=== PATIENT | male | born 1950 | race Asian ===

== ENCOUNTER 2016-06-26 10:01 | Day surgery (SDC) | payer OTHER ==
[2016-06-26] MEDS ORDERED: MIDAZOLAM 2 MG/2 ML VIAL IVP ONE (10:08)
[2016-06-26] MEDS ORDERED: NS 1,000 ML IV ONE (10:08)
[2016-06-26] MEDS ORDERED: fentaNYL 100 MCG/2 ML INJ IVP ONE (10:08)
[2016-06-26] MEDS ORDERED: BENZOCAINE UNIT DOSE SPRAY HURRICAINE MM ONE (10:08)
[2016-06-26] MEDS ORDERED: PROPOFOL/EMULSION 500 MG/50 ML BOTTLE IV ONE (11:11)
--- NOTE | 2016-06-26 14:34 | ECHO ---
[id number] + + [address] : : [facility] [address] : : [phone] + Transesophageal Echocardiographic Report + -----+ :Name: Matt DE LA FUENTE Date: 06/26/2016 10:59 AM : : Hospital Admission Number: [id number] Location : [facility]: :: 1950 Gender: Male : :Age: 65 yrs Race: HL, : :Reason For Study: Evaluate MV and MR : :History: Evaluate MR and MV : + -----+ Doppler Measurements \T\ Calculations TR max doc: 256.2 cm/sec TR max P.3 mmHg Left Ventricle The left ventricle is normal in size and function. Ejection Fraction = 55- 60%%. Right Ventricle The right ventricle is normal in size and function. Atria The interatrial septum is intact with no evidence for an atrial septal defect. The left atrium is severely dilated. Spontaneous contrast in left atrial appendage. No left atrial mass or thrombus visualized. No thrombus is detected in the left atrial appendage. The right atrium is moderate to severely dilated. Mitral Valve The posterior mitral valve leaflet appears shortened and thick; the anterior leaflet is thickened with prolapse. Severe, anteriorly directed and eccentric mitral regurgitation with coanda effect. Tricuspid Valve The tricuspid valve is normal in structure and function. There is mild tricuspid regurgitation. Right ventricular systolic pressure is normal. Aortic Valve The aortic valve is trileaflet. There is no aortic stenosis. Mild aortic regurgitation. Pulmonic Valve The pulmonic valve is normal in structure and function. trace to mild pulmonic valvular regurgitation. Vessels The aortic root is normal size. Mild atherosclerotic plaque(s) in the ascending aorta. Conclusion A 2D transesophageal echocardiogram with Doppler and color flow Doppler was performed. The left ventricle is normal in size and function. The left atrium is severely dilated. Spontaneous contrast in left atrial appendage. No left atrial mass or thrombus visualized. No thrombus is detected in the left atrial appendage. The right atrium is moderate to severely dilated. There is mild tricuspid regurgitation. Mild aortic regurgitation. trace to mild pulmonic valvular regurgitation. Ejection Fraction = 55-60%%. The posterior mitral valve leaflet appears shortened and thick; the anterior leaflet is thickened with prolapse. Severe, anteriorly directed and eccentric mitral regurgitation with coanda effect Right ventricular systolic pressure is normal. Final Reading Physician: Joe Cho electronically signed on 06/26/2016 02:33 PM Ordering Physician: Joe Cho Performed By: Joe Cho
== END 2016-06-26 13:18 | disposition home or self-care (01) ==
LOC: FCATH 10:01
PROVIDERS: ATTEND Internal Medicine Cardiovascular Disease
PROC: B246ZZ4 Ultrasonography of Right and Left Heart, Transesophageal (ICD-10-PCS; principal; 2016-06-26)
DX: I05.1 Rheumatic mitral insufficiency (principal); I48.2 Chronic atrial fibrillation; R06.09 Other forms of dyspnea; I51.7 Cardiomegaly; I27.2 Other secondary pulmonary hypertension; I10 Essential (primary) hypertension; I70.0 Atherosclerosis of aorta; I49.5 Sick sinus syndrome; E78.5 Hyperlipidemia, unspecified; Z87.891 Personal history of nicotine dependence; Z85.46 Personal history of malignant neoplasm of prostate; Z79.01 Long term (current) use of anticoagulants
CPT/HCPCS: J2704

== ENCOUNTER 2016-09-04 08:07 | Day surgery (SDC) | payer MEDICAID, OTHER ==
[2016-09-04] MEDS ORDERED: FAMOTIDINE 20 MG TAB PO ONE (08:16)
[2016-09-04] MEDS ORDERED: NS 1,000 ML IV ONE (08:16)
[2016-09-04] MEDS ORDERED: ASPIRIN EC 325 MG TAB PO ONE (08:16)
[2016-09-04] MEDS ORDERED: diphenhydrAMINE 25 MG CAP PO ONE (08:16)
[2016-09-04] MEDS ORDERED: DIAZEPAM 5 MG TAB PO ONE (08:16)
--- NOTE | 2016-09-04 08:33 | CPEKG ---
Heart Rate: 56 RR Interval: 1071 QRSD Interval: 106 QT Interval: 416 QTC Interval: 402 QRS [place]: 18 T Wave [place]: 239 EKG Severity - ABNORMAL ECG - EKG Impression: ATRIAL FIBRILLATION, V-RATE 42-71 EKG Impression: LOW VOLTAGE IN FRONTAL LEADS EKG Impression: PROBABLE LVH WITH SECONDARY REPOL ABNRM Electronically Signed By: Juan Rjoo 04-Sep-2016 16:52:42
[2016-09-04] MEDS ORDERED: LIDOCAINE 1% 300 MG/30 ML SDV ONE (08:47)
[2016-09-04] MEDS ORDERED: fentaNYL 100 MCG/2 ML INJ ONE (08:47)
[2016-09-04] MEDS ORDERED: MIDAZOLAM 2 MG/2 ML VIAL ONE ×2 (08:47→10:44)
[2016-09-04] MEDS ORDERED: IOPAMIDOL (ISOVUE-370) 150 ML BTL IV ONE (08:48)
[2016-09-04] MEDS ORDERED: HEPARIN 10,000 UNIT/10 ML MDV ONE (08:48)
[2016-09-04] MEDS ORDERED: VERAPAMIL 5 MG/2 ML VIAL ONE (08:48)
[2016-09-04 08:55] LABS: % IMMATURE GRANULYOCYTES 0.2 % (0.0-1.1); ABSOLUTE IMMATURE GRANULOCYTES 0.01 10^3/uL (0.00-0.10); ADD DIFF? NO; ADD MORPH? NO; ADD SCAN? NO; ATYPICAL LYMPHOCYTE FLAG 10 (0-99); FRAGMENT RBC FLAG 0 (0-99); HEMATOCRIT 39.7 % (40.0-51.0); HEMOGLOBIN 13.7 g/dL (13.7-17.5); LEFT SHIFT FLG 0 (0-99); LIPEMIA HEMOLYSIS FLAG 90 (0-99); MEAN CELL HEMOGLOBIN 34.1 pg (27.9-34.1); MEAN CELL HEMOGLOBIN CONCENTR. 34.5 g/dL (32.4-36.7); MEAN CELL VOLUME 98.8 fL (81.5-99.8); MEAN PLATELET VOLUME 10.2 fL (8.7-11.7); PLATELET CLUMPS FLAG 0 (0-99); PLATELET COUNT 170 10^3/uL (150-400); RED BLOOD CELL COUNT 4.02 10^6/uL (4.40-6.38)
[2016-09-04 09:05] LABS: INR 1.11 (0.83-1.16); PROTIME(PATIENT) 14.2 SEC (12.0-15.0)
[2016-09-04 09:25] LABS: ANION GAP 13 mEq/L (8-16); CALCIUM 9.2 mg/dL (8.5-10.4); CARBON DIOXIDE 20 mEq/l (22-31); CHLORIDE 106 mEq/L (97-110); CHOLESTEROL 220 mg/dL (140-220); CHOLESTEROL/HDL RATIO 3.33 RATIO (1.00-4.97); CREATININE 1.1 mg/dL (0.7-1.3); GLOMERULAR FILTRATION RATE > 60; GLUCOSE 109 mg/dL (70-100); HIGH DENSITY LIPOPROTEIN 66 mg/dL (40-65); LDL/HDL RATIO 2.08 RATIO (1.00-3.64); LOW DENSITY LIPOPROTEIN 137 mg/dL (80-100); NON-HIGH DENSITY LIPOPROTEIN 154 mg/dL (90-129); POTASSIUM 3.7 mEq/L (3.5-5.2); SODIUM 139 mEq/L (134-144); TRIGLYCERIDE 89 mg/dL (40-150); VERY LOW DENSITY LIPOPROTEINS 17 mg/dL (8-25)
[2016-09-04] MEDS ORDERED: ETOMIDATE 40 MG/20 ML INJ ONE (10:29)
--- NOTE | 2016-09-04 11:50 | CPIP ---
[f rep st] INVASIVE CARDIAC PROCEDURE DATE OF PROCEDURE: 09/04/2016 PROCEDURE PERFORMED: Right and left heart catheterization. INDICATIONS/APPROPRIATE USE CRITERIA: The patient has [place] Heart Association class 3 symptoms o f shortness of breath with minimal exertion, and has known valvular heart disease with severe and pr ogressive mitral regurgitation. He presents for elective right and left heart catheterization prior to a planned elective mitral valve surgery with possible tricuspid valve repair, as well as an intr aoperative Mendieta maze procedure. PROCEDURE IN DETAIL: After informed consent was obtained, n.p.o. status was confirmed, the region o f the right subclavicular fossa and the left radial artery were cleaned, prepped, and draped in ster ile fashion. A 5-Austrian sheath was placed in the antecubital vein on the right side and to the left radial artery on the left side. The patient then underwent the previously-mentioned diagnostic pro cedure with use of 5-Austrian JL4 and R4 curved coronary catheters, as well as a 6-Austrian pigtail cath eter. Standard wire-exchange technique was utilized for all catheter exchanges. The right coronary artery is dominant, giving rise to the posterior descending, as well as a postero lateral ventricular branch. No flow-limiting obstruction, dissection, or thrombus was identified. The left main coronary lumen is approximately 5 mm in size and bifurcates into an LAD and circumflex system. The circumflex vessel is 3 mm in size without flow-limiting obstruction. The LAD arises i n its usual location and gives rise to a proximal diagonal branch. The proximal LAD does have a lum inal irregularity consistent with underlying atherosclerosis. Maximal luminal stenosis is estimated to be 20%. No flow-limiting obstruction is identified and YANG-3 flow was present to the distal ve ssel. The patient underwent left heart catheterization, demonstrating grossly normal left ventricul ar end-diastolic pressure at 11 mmHg. The patient underwent left ventriculogram in the WOODSON projecti on, demonstrating a mildly dilated left ventricular chamber with overall preserved ejection fraction of 65%, with 4+ mitral regurgitation and evidence of a very enlarged left atrium. The visualized p ortion of the thoracic aorta revealed 3 sinuses of Valsalva, most consistent with a trileaflet aorti c valve, and there was no evidence of isaias aneurysm formation of this ascending aorta or isaias diss ection. The patient then underwent a balloon-tipped and flow-directed [place] catheterization with Jackson ca rdiac output measurements on the basis of oxygen consumption. The right atrial pressure was a mean of 12 with A and V waves of 15 and 13. The pulmonary capillary wedge pressure was measured at 16 wi th V waves of 20. RV pressure was severely elevated at 80/16 with an end-diastolic pressure of 18, the PA pressure was 81/20, with a mean pressure of 41. Simultaneous sats were obtained from the aor ta, found to be 97.9, from the central PA at 73.2, as well as from the SVC at 73.6. The Jackson cardia c output was measured at 4.31 L/minute and cardiac index was 2.72 L/minute/sq m. IMPRESSION AND PLAN: The patient has a right-dominant coronary system without evidence of flow-limi ting obstruction of the coronaries. The patient has a dilated left ventricle with relatively well-p reserved ejection fraction as previously mentioned, with a surprisingly normal left ventricular end- diastolic pressure. There is evidence of severe left atrial enlargement and severe mitral regurgita tion. The Jackson cardiac output and index appeared to be adequate. There is severe pulmonary hyperte nsion on the basis of right heart catheterization. The patient tolerated the procedure well and reyes l return to the post cath recovery unit in good and stable condition, where further preoperative yonatan ting will be obtained. /[id number]/MODL
== END 2016-09-04 15:34 | disposition home or self-care (01) ==
LOC: FCATH 08:07
PROVIDERS: ATTEND Internal Medicine Cardiovascular Disease
DX: Z01.810 Encounter for preprocedural cardiovascular examination (principal); I34.0 Nonrheumatic mitral (valve) insufficiency; I27.2 Other secondary pulmonary hypertension; I48.2 Chronic atrial fibrillation; E78.5 Hyperlipidemia, unspecified; I10 Essential (primary) hypertension; Z85.46 Personal history of malignant neoplasm of prostate; Z79.01 Long term (current) use of anticoagulants
CPT/HCPCS: 71010; 93005; 93460; 93880; C1769; J1644; J2250; J3010; Q9967

== ENCOUNTER 2016-09-05 06:45 | Inpatient (IN) | payer OTHER ==
--- NOTE | 2016-09-04 15:34 | PDGENHP ---
History and Physical - Chief Complaint Symptomatic severe mitral regurgitation - History of Present Illness 65 yo male with valvular heart disease and permanent AF, evaluated for declining exercise tolerance and found to have severe MR, mild-mod TR, giant atria, severe PHTN, a mildly dilated LV and preserved BiV systolic fx. Referred for valvular repair and exclusion of PAYTON. Preop imaging negative for LVDD, obstructive CAD, or hemodynamically significant carotid disease. He has not noted any weight gain, edema, PND, orthopnea, chest pain, abdominal pain, lower extremity edema or any perceivable functional limitations with routine ADLs. Does admit to heart racing, breathlessness and some lightheadedness with hiking or an accelerated pace. History Information - Allergies/Home Medication List Allergies/Adverse Reactions: lactose Allergy (Verified 08/27/16 14:23) Abdominal Pain mercury (elemental) Allergy (Verified 08/27/16 14:23) Rash thimerosal Allergy (Verified 08/27/16 14:23) Rash Home Medications: Warfarin Sodium [Coumadin 2.5MG (*)] 2.5 mg PO MOFR 06/26/16 [Last Taken ] Warfarin Sodium [Coumadin 5MG (*)] 5 mg PO SUTUWETHSA 06/26/16 [Last Taken 08/28] Cholecalciferol Vit D3 [Vitamin D3 2000 units tab (OTC)] 2,000 units PO DAILY [Last Taken 09/03/16] Dutasteride [Avodart 0.5 MG (*)] 0.5 mg PO Q2D 08/27/16 [Last Taken 09/03/16] Enoxaparin [Lovenox 60 MG (*)] 60 mg SQ BID 08/27/16 [Last Taken 09/03/16 09:00] Herbals/Supplements -Info Only 1 ea PO DAILY 08/27/16 [Last Taken Unknown] Valsartan/Hydrochlorothiazide [Valsartan-Hctz 80-12.5 mg Tab] 1 each PO HS 08/27 [Last Taken 09/03/16] I have personally reviewed and updated: medical history, social history, surgical history - Past Medical History atrial fibrillation (slow ventricular response, and not on rate control therapy ; sick sinus syndrome suspected), cancer (prostate 2012, followed by urology/ [place] - surveillance PSAs reportedly WNL), hypertension, hyperlipidemia (elev LDL, statin therapy refused) Additional medical history: chronic anticoagulation, on coumadin since 2005. Melena/LGIB on Pradaxa - Surgical History Reports: cancer surgery (prostate surgery w cyberknife and XRT - denies chemo) Additional surgical history: *error on paper chart - no hx bowel rsxn/colostomy* - Social History Smoking Status: Former smoker Review of Systems ROS: 10pt was reviewed & negative except for what was stated in HPI & below Gastrointestinal: Reports: other (2-3 BMs daily since childhood) Genitourinary: Reports: other (slow stream, denies retention, hesitancy, urgency , or incontinence) Physical Exam Constitutional: no apparent distress Eyes: anicteric sclera, other (PER) Ears, Nose, Mouth, Throat: moist mucous membranes, other (no obvious dental disrepair) Cardiovascular: systolic murmur (III/, loudest at apex), irregularly irregular , bradycardia Peripheral Pulses: 2+: dorsalis-pedis (R), dorsalis-pedis (L) Respiratory: clear to auscultation Gastrointestinal: normoactive bowel sounds, soft, non-tender abdomen Skin: warm, normal color, no rashes or abrasions Musculoskeletal: other (symmetric muscular tone) Psychiatric: interacting appropriately, not anxious Lab Data & Imaging Review 09/03/16: WBC 4.2, Hgb 13.7, HCT 39.7, Plt 170, Na 139, K 3.7, BUN 32, Cr 1.1, Glc 109 INR 1.1 Lipids: TC 220, LDL 137, HDL 66, TG 89 Blood type A pos, antibody screen neg Imaging Review: 09/04/16 L/RHC: Rt dom bibi circulation, mild plaquing of LAD - no stenosis > 20% , LVEDP 11, mildly dilated LV, severely dilated LA, 4+ MR, LVEF 65%, PCWP 16, PA mean 41, RVSP 80/16, CI 2.7 Carotid US: No HD sig stenosis, antegrade vertebral flow bilat Visualized and Interpreted Chest x-ray results: Yes Chest X-Ray results: no infiltrate, normal heart size Visualized and Interpreted EKG results: Yes EKG Interpretation: Positive for: other (AF w VVR 40s-70s) Assessment & Plan Assessment: Sx severe MR Secondary TR Secondary PHTN Permanent AF/probable SSS - high risk for postop PPM Dilated cardiomyopathy without ventricular dysfunction Successful coumadin washout on lovenox Plan: Median sternotomy, MVrepair/replace, TVA, AtriClip LLAA, probable Maze. Consents per Dr Mack.
[2016-09-05] MEDS ORDERED: ceFAZolin 2 GM/DEXTROSE 100 ML IV ONE (07:00)
[2016-09-05] MEDS ORDERED: niCARdipine/NACL 200 ML IV ONE (07:00)
[2016-09-05] MEDS ORDERED: MILRINONE/DEXTROSE 100 ML IV ONE (07:00)
[2016-09-05] MEDS ORDERED: DOBUTamine 500 MG in D5W 250 ML IV ONE (07:00)
[2016-09-05] MEDS ORDERED: SODIUM BICARBONATE 20 MEQ, LIDOCAINE 1% 10 ML in NORMOSOL-R 1,000 ML MISC ONE (07:00)
[2016-09-05] MEDS ORDERED: MANNITOL 25% 12.5 GM/50 ML VIAL IV ONE (07:00)
[2016-09-05] MEDS ORDERED: NOREPINEPHRINE BITARTRATE 16 MG in NS 250 ML IV ONE (07:00)
[2016-09-05] MEDS ORDERED: DOBUTamine/DEXTROSE 250 ML IV ONE (07:00)
[2016-09-05] MEDS ORDERED: PHENYLEPHRINE HCL 50 MG in NS 250 ML IV ONE (07:00)
[2016-09-05] MEDS ORDERED: AMINOCAPROIC ACID 5 GM/20 ML VIAL IV ONE (07:00)
[2016-09-05] MEDS ORDERED: INSULIN REGULAR HUMAN 100 UNIT in NS 100 ML IV ONE (07:00)
[2016-09-05] MEDS ORDERED: CITRATE DEXTROSE SOLN 500 ML BAG MISC ONE (07:00)
[2016-09-05] MEDS ORDERED: LIDOCAINE 1% 5 ML SDV ID PRN (07:30)
[2016-09-05] MEDS ORDERED: LR 1,000 ML IV ONE (07:30)
--- NOTE | 2016-09-05 07:30 | PDHPUP ---
History & Physical Update H&P update statement: This history and physical update is based on an assessment of the patient which was completed after admission or registration (within 24 hours), but prior to the surgery/procedure. H&P update: H&P reviewed & patient examined, no change in patient's condition since H&P completed
[2016-09-05] MEDS: MUPIROCIN 2% 22 GM OINT NS SCH ×2 (08:04→21:55)
[2016-09-05] MEDS ORDERED: MIDAZOLAM 2 MG/2 ML VIAL IVP ONE (08:39)
[2016-09-05] MEDS ORDERED: MIDAZOLAM 2 MG/2 ML VIAL ONE ×3 (08:42→08:55)
--- NOTE | 2016-09-05 08:44 | PDANEPAE ---
ANE History of Present Illness severe MR,a-fib, class 3 CHF ANE Past Medical History - Cardiovascular History Hx Hypertension: Yes Hx Arrhythmias: Yes Hx Chest Pain: No Hx Coronary Artery / Peripheral Vascular Disease: No Hx CHF / Valvular Disease: Yes Hx Palpitations: No - Pulmonary History Hx COPD: No Hx Asthma/Reactive Airway Disease: No Hx Recent Upper Respiratory Infection: No Hx Oxygen in Use at Home: No - Neurologic History Hx Cerebrovascular Accident: No Hx Seizures: No Hx Dementia: No - Endocrine History Hx Diabetes: No - Renal History Hx Renal Disorders: No - Liver History Hx Hepatic Disorders: No - Neurological & Psychiatric Hx Hx Neurological and Psychiatric Disorders: No - Cancer History Hx Cancer: Yes - Congenital Disorder History Hx Congenital Disorders: No - GI History Hx Gastrointestinal Disorders: No - Chronic Pain History Chronic Pain: No ANE Review of Systems - Exercise capacity METS (RN): 4 METS (gets tired recently) - Systems Cardiac: Reports: irregular heart rate, lightheadedness, palpitations, other ( severe MR, a-fib) Gastrointestinal: Reports: other (history prostate Ca) ANE Patient History - Allergies Allergies/Adverse Reactions: lactose Allergy (Verified 08/27/16 14:23) Abdominal Pain mercury (elemental) Allergy (Verified 08/27/16 14:23) Rash thimerosal Allergy (Verified 08/27/16 14:23) Rash - Home Medications Home Medications: Warfarin Sodium [Coumadin 2.5MG (*)] 2.5 mg PO MOFR 06/26/16 [Last Taken ] Warfarin Sodium [Coumadin 5MG (*)] 5 mg PO SUTUWETHSA 06/26/16 [Last Taken 08/29] Cholecalciferol Vit D3 [Vitamin D3 2000 units tab (OTC)] 2,000 units PO DAILY [Last Taken 09/03/16] Dutasteride [Avodart 0.5 MG (*)] 0.5 mg PO Q2D 08/27/16 [Last Taken 09/03/16] Enoxaparin [Lovenox 60 MG (*)] 60 mg SQ BID 08/27/16 [Last Taken 09/03/16 09:00] Herbals/Supplements -Info Only 1 ea PO DAILY 08/27/16 [Last Taken 1 Week Ago] Valsartan/Hydrochlorothiazide [Valsartan-Hctz 80-12.5 mg Tab] 1 each PO HS 08/27 [Last Taken 09/04/16] - NPO status NPO Since - Liquids (Date): 09/04/16 NPO Since - Liquids (Time): 19:30 NPO Since - Solids (Date): 09/04/16 NPO Since - Solids (Time): 19:30 - Smoking Hx Smoking Status: Former smoker - Family Anes Hx Family Hx Anesthesia Complications: none ANE Labs/Vital Signs - Labs - CBC WBC: reviewed and okay - Labs - BMP Sodium: reviewed and okay - Vital Signs Blood Pressure: 129/58 Heart Rate: 58 Respiratory Rate: 16 O2 Sat (%): 96 Height: 162.56 cm Weight: 59.874 kg ANE Physical Exam - Airway Neck exam: decreased ROM Mallampati Score: Class 1 Mouth exam: normal dental/mouth exam - Pulmonary Pulmonary: no respiratory distress - Cardiovascular Cardiovascular: irregularly irregular - ASA Status ASA Status: II ANE Anesthesia Plan Anesthesia Plan: general endotracheal anesthesia Lines/Monitors: arterial line (femoral by cts), central line (quad lumen CVP), LUIS (peds )
[2016-09-05] MEDS ORDERED: fentaNYL 100 MCG/2 ML INJ ONE ×4 (08:55→12:35)
[2016-09-05] MEDS ORDERED: PROPOFOL/EMULSION 500 MG/50 ML BOTTLE IV ONE (08:56)
[2016-09-05] MEDS ORDERED: REMIFENTANIL HCL 1 MG VIAL ONE (08:56)
[2016-09-05] MEDS ORDERED: ROCURONIUM 100 MG/10 ML VIAL ONE (08:57)
[2016-09-05] MEDS ORDERED: LIDOCAINE HCL 160 MG/4 ML LTA KIT TP ONE (08:59)
[2016-09-05] MEDS ORDERED: AMINOCAPROIC ACID 5 GM/20 ML VIAL ONE ×2 (09:07→09:11)
[2016-09-05] MEDS ORDERED: POTASSIUM Cl (KCl) 20 MEQ/50 ML BAG IV ONE (09:07)
[2016-09-05] MEDS ORDERED: CALCIUM CHLORIDE 1 GM/10 ML INJ ONE ×2 (09:07→09:11)
[2016-09-05] MEDS ORDERED: MILRINONE/DEXTROSE/100 ML BAG IV ONE (09:07)
[2016-09-05] MEDS ORDERED: PROTAMINE SULFATE 50 MG/5 ML VIAL IVP ONE (09:07)
[2016-09-05] MEDS ORDERED: niCARdipine/NACL/200 ML BAG IV ONE ×2 (09:08→13:53)
[2016-09-05] MEDS ORDERED: NA BICARBONATE 50 MEQ/50 ML VIAL ONE (09:08)
[2016-09-05] MEDS ORDERED: DOPamine/DEXTROSE/250 ML BAG IV ONE (09:08)
[2016-09-05] MEDS ORDERED: AMIODARONE HCL 150 MG/3 ML VIAL ONE ×2 (09:09→09:12)
[2016-09-05] MEDS ORDERED: ADENOSINE 6 MG/2 ML VIAL ONE (09:09)
[2016-09-05] MEDS ORDERED: HEPARIN 10,000 UNIT/10 ML MDV ONE ×2 (09:09→09:13)
[2016-09-05] MEDS ORDERED: ceFAZolin 1 GM VIAL ONE (09:10)
[2016-09-05] MEDS ORDERED: ALBUMIN 5% 250 ML BOTTLE IV ONE (09:11)
[2016-09-05] MEDS ORDERED: CITRATE DEXTROSE SOLN 500 ML BAG ONE (09:12)
[2016-09-05] MEDS ORDERED: methylPREDNISolone SOD SUCC 1 GM/8 ML VIAL ONE (09:12)
[2016-09-05] MEDS ORDERED: LIDOCAINE 2% 100 MG/5 ML SYR ONE (09:12)
[2016-09-05] MEDS ORDERED: MAGNESIUM SULFATE 1 GM/2 ML VIAL ONE (09:12)
[2016-09-05] MEDS ORDERED: DEXAMETHASONE 4 MG/ML VIAL ONE ×2 (09:28)
[2016-09-05] MEDS ORDERED: ESMOLOL HCL 100 MG/10 ML VIAL IV ONE (09:29)
[2016-09-05] MEDS ORDERED: PHENYLEPHRINE HCL 100 MCG/ML SYR ONE (09:38)
[2016-09-05 10:10] LABS: HEMOGLOBIN A1C 6.3 % (4.0-6.0)
[2016-09-05] MEDS ORDERED: MAGNESIUM SULF 2 GM/WATER 50 ML BAG IV ONE (11:37)
[2016-09-05] MEDS ORDERED: SUGAMMADEX SODIUM 200 MG/2 ML VIAL IVP ONE (12:33)
[2016-09-05] MEDS ORDERED: MAGNESIUM HYDROXIDE 30 ML UDCUP PO PRN (12:57)
[2016-09-05] MEDS ORDERED: ALBUMIN 5% 250 ML IV PRN (12:57)
[2016-09-05] MEDS ORDERED: ONDANSETRON DISINTEGRATING 4 MG TAB PO PRN (12:57)
[2016-09-05] MEDS ORDERED: SODIUM CL NASAL 45 ML BTL EACHNARE PRN (12:57)
[2016-09-05] MEDS ORDERED: MEPERIDINE 25 MG/ML SYR IVP PRN (12:57)
[2016-09-05] MEDS ORDERED: fentaNYL 100 MCG/2 ML INJ IVP PRN (12:57)
[2016-09-05] MEDS ORDERED: POLYETHYLENE GLYCOL 3350 17 GM PKT PO PRN (12:57)
[2016-09-05] MEDS ORDERED: ACETAMINOPHEN 650 MG SUPP PR PRN (12:57)
[2016-09-05] MEDS ORDERED: ACETAMINOPHEN 325 MG TAB PO PRN (12:57)
[2016-09-05] MEDS ORDERED: BISACODYL 10 MG SUPP PR PRN (12:57)
[2016-09-05] MEDS ORDERED: D50W 25 GM/50 ML SYR IVP PRN (12:57)
[2016-09-05] MEDS ORDERED: MAGNESIUM SULF 2 GM/WATER 50 ML IV ONE (12:57)
[2016-09-05] MEDS ORDERED: CEPACOL LOZENGE PO PRN (12:57)
[2016-09-05] MEDS ORDERED: METOCLOPRAMIDE 10 MG/2 ML VIAL IVP PRN (12:57)
[2016-09-05] MEDS ORDERED: LACTULOSE 20 GM/30 ML UDCUP PO PRN (12:57)
[2016-09-05] MEDS ORDERED: PANTOPRAZOLE SODIUM 40 MG in NS 100 ML IV ONE (12:57)
[2016-09-05] MEDS ORDERED: NS 1,000 ML IV SCH (13:00)
[2016-09-05] MEDS ORDERED: SODIUM BICARBONATE 50 MEQ/50 ML SYR ONE (14:13)
--- NOTE | 2016-09-05 14:28 | GOP ---
[f rep st] OPERATIVE REPORT DATE OF OPERATION: 09/05/2016 SURGEON: Bharath Mack DO PREOPERATIVE DIAGNOSIS: Class III-IV congestive heart failure with severe mitral insufficiency, severe left atrial enlargement as well as four-chamber enlargement. He also had moderate TR with markedly dilated tricuspid anulus and a longstanding history of permanent atrial fibrillation. POSTOPERATIVE DIAGNOSIS: PROCEDURE PERFORMED: Complex Mitral repair with gortex chordal reconstruction to A3 and #32 Physio annuloplasty ring , TVA #34Edwards ring, Mendieta-Maze 4 with RF and cryo with testing FINDINGS: DESCRIPTION OF PROCEDURE: He was consented for surgery, brought to the operating room, intubated, monitoring lines were placed. He was prepped and draped in sterile classical manner. A sternotomy was performed. The pericardium was opened. The heart was approximately 2 times normal size with all 4 chambers markedly enlarged. He appeared to be volume overloaded in somewhat congestive heart failure mode. He was heparinized, cannulated in ascending aorta, superior vena cava and inferior vena cava. Cardiopulmonary bypass was begun. We then encircled both pulmonary veins and ablated them with multiple lesion sets. We then checked him for exit block and entrance block, and it was confirmed. We then arrested the heart. I then excised the tip of a very large left atrial appendage and placed a radiofrequency bipolar device across that into the right superior pulmonary vein, ablating multiple times. We then placed a 50 mm clip across the base of the vein. I then marked the terminus of the left and right coronary systems for coronary sinus ablation in the future. We then opened the right atrium in a standard fashion. The fat in the groove had been dissected in order to accomplish better ablation. A retractor was placed. I then performed the dome lesion with cryo, adjusted with difficulty placing the clamp with the clip in place. We did a 3-minute cryo lesion from the right to the left superior pulmonary vein, crossing both lines. I then performed the floor lesion utilizing radiofrequency with multiple ablations performed. I then connected the right inferior pulmonary vein to the isthmus of the mitral valve for 3 minutes. I then performed a similar external application along the same line, crossing the coronary sinus where marked in order to complete that lesion set for 2 minutes. I then inspected the mitral valve. He had marked annular dilatation with no evidence of rupture, but it had prolapse of A3, which was the source of his regurgitation. Annuloplasty sutures were placed circumferentially. I then created [place] neochordae from both the posterior and anterior papillary muscles to the midportion of the anterior leaflet, adjusting it appropriately. I then secured a [address], noting the prolapse of A3. These previously placed [place] sutures were tightened down until the regurgitation was eliminated. I then used methylene blue to confirm at least 1/2 inch of coaptation surface both anterior and posteriorly. These sutures were secured with multiple ties. I then closed the left atrium in a standard fashion. I then placed the patient in Trendelenburg. We then opened the right atrium in a vertical fashion, completing the free wall lesion with multiple applications of radiofrequency superior and inferior and inferior vena caval lines with multiple applications. I then used cryo after removing the crossclamp in Trendelenburg across the tricuspid isthmus and held that for 3 minutes. We then placed circumferential sutures around the tricuspid valve, measured him for a 34 ring. This was secured in place. Distention of the ventricle revealed no regurgitation. It should be noted that the tricuspid anulus was 5 cm in diameter upon measurement. I then closed the right atrium while spontaneous cardiac activity was noted to resume. We de-aired the patient through the apex and aortic vent, and when no further air was identified he was easily weaned from bypass on dobutamine. The heparin was reversed with protamine. The cannula was removed and oversewn. 4 pacing wires, 2 mediastinal drains were placed. The thymic fat and pericardium were closed. Chest was closed in a standard fashion. Patient was extubated in the OR and returned to ICU in stable condition. /[id number]/MODL MTDD
--- NOTE | 2016-09-05 14:29 | CPEKG ---
Heart Rate: 94 RR Interval: 638 QRSD Interval: 98 QT Interval: 424 QTC Interval: 531 QRS [place]: -45 T Wave [place]: 100 EKG Severity - ABNORMAL ECG - EKG Impression: ACCELERATED JUNCTIONAL RHYTHM EKG Impression: INFERIOR INFARCT, OLD Electronically Signed By: Juan Rojo 06-Sep-2016 16:53:29
[2016-09-05] MEDS: KETOROLAC 15 MG/1 ML SDV IVP PRN (14:39)
[2016-09-05] MEDS: ceFAZolin 2 GM/DEXTROSE 100 ML IV SCH ×2 (14:40→21:55)
[2016-09-05] MEDS: niCARdipine/NACL 200 ML IV SCH ×2 (14:43→15:00)
[2016-09-05] MEDS ORDERED: NA BICARBONATE 50 MEQ/50 ML VIAL IV ONE ×3 (14:45)
[2016-09-05 15:05] LABS: CALCULATED OXYGEN SATURATION 97 % (92-95); O2 CONCENTRATIION 40 % (0-100)
[2016-09-05] MEDS: POTASSIUM Cl (KCl) 50 ML IV PRN ×2 (16:04→16:05)
[2016-09-05] MEDS ORDERED: niCARdipine/NACL 200 ML IV SCH (19:00)
[2016-09-05] MEDS: ONDANSETRON 4 MG/2 ML VIAL IVP PRN (19:15)
[2016-09-05] MEDS: INSULIN REGULAR HUMAN 100 UNIT in NS 100 ML IV SCH (19:47)
[2016-09-06] MEDS: KETOROLAC 15 MG/1 ML SDV IVP PRN (02:45)
[2016-09-06] MEDS: INSULIN REGULAR HUMAN 100 UNIT in NS 100 ML IV SCH (02:48)
[2016-09-06] MEDS: HYDROCODONE/APAP 5/325 TAB PO PRN ×4 (05:15→20:39)
[2016-09-06] MEDS: ONDANSETRON 4 MG/2 ML VIAL IVP PRN ×2 (05:16→20:37)
[2016-09-06] MEDS: ceFAZolin 2 GM/DEXTROSE 100 ML IV SCH ×3 (05:19→21:41)
[2016-09-06 05:54] LABS: CALCULATED OXYGEN SATURATION 97 % (92-95)
[2016-09-06 05:55] LABS: % IMMATURE GRANULYOCYTES 0.4 % (0.0-1.1); ABSOLUTE IMMATURE GRANULOCYTES 0.05 10^3/uL (0.00-0.10); ADD DIFF? NO; ADD MORPH? NO; ADD SCAN? YES; ATYPICAL LYMPHOCYTE FLAG 0 (0-99); FRAGMENT RBC FLAG 0 (0-99); HEMATOCRIT 29.5 % (40.0-51.0); HEMOGLOBIN 9.9 g/dL (13.7-17.5); LIPEMIA HEMOLYSIS FLAG 80 (0-99); MEAN CELL HEMOGLOBIN 33.4 pg (27.9-34.1); MEAN CELL HEMOGLOBIN CONCENTR. 33.6 g/dL (32.4-36.7); MEAN CELL VOLUME 99.7 fL (81.5-99.8); MEAN PLATELET VOLUME 10.3 fL (8.7-11.7); PLATELET CLUMPS FLAG 30 (0-99); PLATELET COUNT 73 10^3/uL (150-400); RED BLOOD CELL COUNT 2.96 10^6/uL (4.40-6.38); RED CELL DISTRIBUTION WIDTH 15.4 % (11.5-15.2)
[2016-09-06 05:58] LABS: LEFT SHIFT FLG 120 (0-99)
[2016-09-06 06:07] LABS: ANION GAP 7 mEq/L (8-16); CALCIUM 7.8 mg/dL (8.5-10.4); CARBON DIOXIDE 20 mEq/l (22-31); CHLORIDE 110 mEq/L (97-110); CREATININE 0.8 mg/dL (0.7-1.3); GLOMERULAR FILTRATION RATE > 60; GLUCOSE 145 mg/dL (70-100); POTASSIUM 4.3 mEq/L (3.5-5.2); SODIUM 137 mEq/L (134-144)
[2016-09-06 06:08] LABS: INR 1.34 (0.83-1.16); PROTIME(PATIENT) 16.6 SEC (12.0-15.0)
[2016-09-06 06:46] LABS: SCAN NEGATIVE
--- NOTE | 2016-09-06 06:56 | SOAPPROG ---
SOAP Progress Note Assessment/Plan: Assessment: POD#1 complex MV rpr (A3 goretex chordal reconstruction and # 32Physio ring), TVA #34MC3 ring, CoxMaze4 Sx severe MR - Ant leaflet prolapse and annular dilatation amenable to repair. Extubated in the OR. Stable early postop course. Antithrombotic prophylaxis with Coumadin. Pre-existing INR parameters of 2-3 sufficient. Secondary TR - Amenable to ring annuloplasty. Antithrombotic prophylaxis as per MV. Dilated cardiomyopathy - Slightly reduced LV systolic fx intraop. from CPB on dobutamine. Fixed dose overnoc for optimized hemodynamics. Wean in progress. Staggered intro of heart failure regimen as appropriate. Longstanding slow AF w ASTRID - JR early postop Maze and AV paced. Underlying rhythm overnoc AJR and left on VVI backup. EP cards to follow for potential PPM needs. Chronic anticoag w coumadin resumed (at lower dose in event of PPM). Lovenox bridge pending INR < 2. Acute expected blood loss anemia - Stable. No blood products transfused. No evidence bleeding. VTE prophylaxis with lovenox. Stress hyperglycemia - Preop A1c of 6.3%. Postop hyperglycemia managed with low dose insulin gtt. Wean to SSI as per protocol. Plan: Routine POD#1 orders re drains, orals and mobility. Reduce dobutamine to 2.5 mcg/kg/min. Discontinue in 1 hr if SBP > 100. AV pace at 90 to facilitate dobut wean. Keep [place] until off dobut. Lasix prn SBP > 140, CVP > 12. Resume therapeutic Lovenox. Resume lower dose Coumadin. Possible tx to PCU later today. 09/06/16 06:50 Subjective: Doing ok. Satisfactory analgesia. Tolerating OOB without dizziness. A little nauseous w orals. Objective: Vital Signs Temp Pulse Resp BP Pulse Ox 36.4 C 82 15 130/42 H 95 09/06/16 06:00 09/06/16 06:00 09/06/16 06:00 09/06/16 06:00 09/06/16 06:00 Laboratory Results 09/06/16 05:45 09/06/16 05:45 09/05/16 09/06/16 09/07/16 05:59 05:59 05:59 Intake Total 1971 Output Total 2445 Balance -474 PT 16.6 SEC (12.0-15.0) H 09/06/16 05:45 INR 1.34 (0.83-1.16) H 09/06/16 05:45 AJR 70s-80s since MN without drop in BP vs AVpaced. Dobutamine reduced from 10 to 5 yest pm. MAPs generally > 70. Excellent UOP. No significant CTOP. CXR -> No PTX, no pulm vasc congestion, no pleural effusions, inc bowel gas Labs as expected. Physical Exam - Physical Exam General Appearance: alert, no apparent distress Respiratory: normal breath sounds (grossly), other (blakes x 2 y-d to pleurovac , serosang drainage, no air leak) Cardiac/Chest: regular rate, rhythm, other (Sternum grossly stable. Sternotomy CDI. A&V wires intact.) Abdomen: normal bowel sounds, non-tender, soft Skin: warm/dry Extremities: swelling (trace-1+ gen) ICD10 Worksheet Patient Problems: Problems Problem Status Onset Acute blood loss anemia Acute Status post ablation of atrial fibrillation Acute ~09/05/16 Status post mitral valve repair Acute ~09/05/16 Status post tricuspid valve repair Acute ~09/05/16 Atrial fibrillation Chronic Chronic anticoagulation Chronic Moderate to severe pulmonary hypertension Chronic Secondary tricuspid regurgitation Chronic Severe mitral regurgitation Chronic
[2016-09-06] MEDS ORDERED: DOBUTamine/DEXTROSE 250 ML IV SCH (07:00)
--- NOTE | 2016-09-06 07:37 | CPEKG ---
Heart Rate: 69 RR Interval: 870 QRSD Interval: 84 QT Interval: 408 QTC Interval: 437 QRS [place]: -7 T Wave [place]: 98 EKG Severity - ABNORMAL ECG - EKG Impression: ATRIAL FIBRILLATION EKG Impression: ANTEROLATERAL INFARCT, OLD Electronically Signed By: Juan Rojo 06-Sep-2016 16:53:08
[2016-09-06] MEDS ORDERED: POTASSIUM Cl (KCl) 100 ML IV ONE (08:00)
[2016-09-06] MEDS ORDERED: FUROSEMIDE 20 MG/2 ML VIAL IV ONE (08:00)
[2016-09-06] MEDS ORDERED: POTASSIUM Cl (KCl) 50 ML IV ONE (08:30)
[2016-09-06] MEDS: ASPIRIN 81 MG CHEWABLE TAB PO SCH (09:27)
[2016-09-06] MEDS: ENOXAPARIN 60 MG/0.6 ML SYR SC SCH ×2 (09:27→20:39)
[2016-09-06] MEDS: PANTOPRAZOLE SODIUM 40 MG TAB PO SCH (09:28)
[2016-09-06] MEDS: MUPIROCIN 2% 22 GM OINT NS SCH ×2 (09:28→20:48)
[2016-09-06] MEDS ORDERED: traMADol 50 MG TAB PO PRN (11:22)
[2016-09-06] MEDS: WARFARIN SODIUM 2.5 MG TAB PO SCH (15:56)
[2016-09-06 19:03] LABS: POTASSIUM 4.7 mEq/L (3.5-5.2)
[2016-09-06] MEDS: VALSARTAN 40 MG TAB PO SCH (20:39)
[2016-09-06] MEDS: SENNOSIDES/DOCUSATE SODIUM TAB PO SCH (20:39)
[2016-09-07 06:29] LABS: % IMMATURE GRANULYOCYTES 0.5 % (0.0-1.1); ABSOLUTE IMMATURE GRANULOCYTES 0.08 10^3/uL (0.00-0.10); ADD DIFF? NO; ADD MORPH? NO; ADD SCAN? NO; ATYPICAL LYMPHOCYTE FLAG 0 (0-99); FRAGMENT RBC FLAG 0 (0-99); HEMATOCRIT 26.4 % (40.0-51.0); HEMOGLOBIN 8.9 g/dL (13.7-17.5); LEFT SHIFT FLG 50 (0-99); LIPEMIA HEMOLYSIS FLAG 80 (0-99); MEAN CELL HEMOGLOBIN 34.1 pg (27.9-34.1); MEAN CELL HEMOGLOBIN CONCENTR. 33.7 g/dL (32.4-36.7); MEAN CELL VOLUME 101.1 fL (81.5-99.8); MEAN PLATELET VOLUME 10.8 fL (8.7-11.7); PLATELET CLUMPS FLAG 10 (0-99); PLATELET COUNT 75 10^3/uL (150-400); RED BLOOD CELL COUNT 2.61 10^6/uL (4.40-6.38); RED CELL DISTRIBUTION WIDTH 15.9 % (11.5-15.2)
[2016-09-07 06:51] LABS: INR 1.37 (0.83-1.16); PROTIME(PATIENT) 16.9 SEC (12.0-15.0)
[2016-09-07 07:10] LABS: ANION GAP 6 mEq/L (8-16); CARBON DIOXIDE 25 mEq/l (22-31); CHLORIDE 102 mEq/L (97-110); GLOMERULAR FILTRATION RATE > 60; GLUCOSE 136 mg/dL (70-100); POTASSIUM 5.5 mEq/L (3.5-5.2); SODIUM 133 mEq/L (134-144)
[2016-09-07] MEDS ORDERED: FUROSEMIDE 20 MG/2 ML VIAL IVP ONE (07:30)
--- NOTE | 2016-09-07 07:55 | SOAPPROG ---
SOAP Progress Note Assessment/Plan: Assessment: POD#2 complex MV rpr (A3 goretex chordal reconstruction and # 32Physio ring), TVA #34MC3 ring, CoxMaze4 Sx severe MR - Ant leaflet prolapse and annular dilatation amenable to repair. Extubated in the OR. Stable early postop course. Antithrombotic prophylaxis with Coumadin. Pre-existing INR parameters of 2-3 sufficient. Secondary TR - Amenable to ring annuloplasty. Antithrombotic prophylaxis as per MV. Dilated cardiomyopathy - Slightly reduced LV systolic fx intraop. from CPB on dobutamine. Fixed dose x 24h for optimized hemodynamics. Staggered intro of heart failure regimen in progress. Longstanding slow AF w ASTRID - JR early postop Maze and AV paced. Underlying rhythm per EP cards fine AF w SVR and left on VVI backup. Remains pacer dependent. PPM likely. Slow re-anticoag w coumadin pending timing of PPM. Lovenox bridge pending INR < 2. Acute expected blood loss anemia - Stable. No blood products transfused. No evidence bleeding. VTE prophylaxis with lovenox. Stress hyperglycemia - Preop A1c of 6.3%. Postop hyperglycemia managed with low dose insulin gtt. No subsequent correctional needs and monitoring suspended. Plan: Mediastinal drain removed. Cont VVI backup. Inc rate to 70. Resume daily diuresis. Cont Valsartan 40 mg BID. Cont therapeutic Lovenox. Cont Coumadin. 1 mg today. Baseline postop echo Mon. Dispo - Home Mon pm or if rhythm stable. 09/07/16 07:48 Subjective: Doing ok. Short freq walks well tolerated. Hasn't tried to extend jaunts just yet. Objective: Vital Signs Temp Pulse Resp BP Pulse Ox 36.7 C 60 18 134/48 H 96 09/07/16 07:44 09/07/16 07:44 09/07/16 07:44 09/07/16 07:44 09/07/16 07:44 Laboratory Results 09/07/16 06:20 09/07/16 06:20 09/06/16 09/07/16 09/08/16 05:59 05:59 05:59 Intake Total 1971 1450 Output Total 2448 1680 Balance -474 -230 PT 16.9 SEC (12.0-15.0) H 09/07/16 06:20 INR 1.37 (0.83-1.16) H 09/07/16 06:20 100% pacer dependent on VVI backup 60. Underlying resting rates 30s -40s. Endorses a little wooziness with paced rate 50. HR does inc with activity. Upward BP creep and ARB restarted. Adequate fluid balance. Labs ok. K oversuppl. Physical Exam - Physical Exam General Appearance: alert, no apparent distress Respiratory: lungs clear, other (Blakes x 2 to bulb suction, serosang drainage. Mediastinal drain removed without incident.) Cardiac/Chest: regular rate, rhythm (paced), other (A&V wires intact) Abdomen: non-tender, soft Skin: warm/dry Extremities: swelling (trace) ICD10 Worksheet Patient Problems: Problems Problem Status Onset Acute blood loss anemia Acute Status post ablation of atrial fibrillation Acute ~09/05/16 Status post mitral valve repair Acute ~09/05/16 Status post tricuspid valve repair Acute ~09/05/16 Atrial fibrillation Chronic Chronic anticoagulation Chronic Moderate to severe pulmonary hypertension Chronic Secondary tricuspid regurgitation Chronic Severe mitral regurgitation Chronic
[2016-09-07] MEDS: ENOXAPARIN 60 MG/0.6 ML SYR SC SCH ×2 (08:29→21:37)
[2016-09-07] MEDS: HYDROCODONE/APAP 5/325 TAB PO PRN ×2 (08:30→21:37)
[2016-09-07] MEDS: DUTASTERIDE 0.5 MG CAP PO SCH (08:30)
[2016-09-07] MEDS: PANTOPRAZOLE SODIUM 40 MG TAB PO SCH (08:30)
[2016-09-07] MEDS: VALSARTAN 40 MG TAB PO SCH ×2 (08:31→21:36)
[2016-09-07] MEDS: SENNOSIDES/DOCUSATE SODIUM TAB PO SCH ×2 (08:31→21:36)
[2016-09-07] MEDS: ASPIRIN 81 MG CHEWABLE TAB PO SCH (08:31)
[2016-09-07] MEDS: CHOLECALCIFEROL VIT D3 2,000 UNITS TAB/CAP PO SCH (08:31)
[2016-09-07 13:12] LABS: POTASSIUM 4.4 mEq/L (3.5-5.2)
[2016-09-07] MEDS ORDERED: WARFARIN SODIUM 2.5 MG TAB PO ONE (16:00)
[2016-09-07] MEDS ORDERED: WARFARIN SODIUM 1 MG TAB PO ONE (16:00)
[2016-09-07] MEDS: WARFARIN SODIUM 5 MG TAB PO SCH (18:31)
[2016-09-08 06:01] LABS: HEMATOCRIT 22.8 % (40.0-51.0); HEMOGLOBIN 7.6 g/dL (13.7-17.5)
[2016-09-08 06:13] LABS: INR 1.32 (0.83-1.16); PROTIME(PATIENT) 16.4 SEC (12.0-15.0)
[2016-09-08 06:25] LABS: POTASSIUM 4.7 mEq/L (3.5-5.2)
--- NOTE | 2016-09-08 08:29 | SOAPPROG ---
SOAP Progress Note Assessment/Plan: Assessment: POD#3 complex MV rpr (A3 goretex chordal reconstruction and # 32Physio ring), TVA #34MC3 ring, CoxMaze4 Sx severe MR - Ant leaflet prolapse and annular dilatation amenable to repair. Extubated in the OR. Stable early postop course. Antithrombotic prophylaxis with Coumadin. Pre-existing INR parameters of 2-3 sufficient. Secondary TR - Amenable to ring annuloplasty. Antithrombotic prophylaxis as per MV. Dilated cardiomyopathy - Slightly reduced LV systolic fx intraop. from CPB on dobutamine. Fixed dose x 24h for optimized hemodynamics. Staggered intro of heart failure regimen in progress. Longstanding slow AF w ASTRID - JR early postop Maze and AV paced. Underlying rhythm per EP cards fine AF w SVR and left on VVI backup. Remains pacer dependent. PPM planned for tomorrow. Re-anticoagulation in progress. Lovenox bridge pending INR < 2. Acute expected blood loss anemia - Exacerbated by hx G6PD deficiency. Falling H/ H yet to equilibrate. Well tolerated. No evidence active surgical bleeding. Will ck for hemolysis and transfuse prn. VTE prophylaxis with lovenox. Fe suppl x 2 weeks. Stress hyperglycemia - Preop A1c of 6.3%. Postop hyperglycemia managed with low dose insulin gtt. No subsequent correctional needs and monitoring suspended. Plan: Repeat H/H. Hold Lovenox for now. Inc Protonix to BID. Remove pleural drain and Awires. Cont VVI backup at 70. Cont daily diuresis. Cont Valsartan 40 mg BID. Cont Coumadin as per home regimen. Start Feosol hs. Baseline postop echo Mon. PPM Mon per cards. 09/08/16 08:27 Subjective: Feels well. 1 lap around the hdez well tolerated this am. No acute concerns. Not surprised by "anemia" as has G6pd deficiency (manifest in the past with intermittent hematuria). +BM, brown in color. Objective: Vital Signs Temp Pulse Resp BP Pulse Ox 37.4 C 70 14 109/51 L 97 09/08/16 07:32 09/08/16 07:32 09/08/16 07:32 09/08/16 07:32 09/08/16 07:32 Laboratory Results 09/08/16 05:50 09/08/16 05:50 09/07/16 09/08/16 09/09/16 05:59 05:59 05:59 Intake Total 1450 800 Output Total 1680 375 40 Balance -230 425 -40 PT 16.4 SEC (12.0-15.0) H 09/08/16 05:50 INR 1.32 (0.83-1.16) H 09/08/16 05:50 Remains pacer dependent. MAPs > 70. I/Os inaccurate. Adequate fluid balance by wts. 0.7kg wt loss overnoc. Now + 1.4kg. Downward drifting H/H. Minimal drainage from remaining chest tube. INR yet to budge. Physical Exam - Physical Exam General Appearance: alert, no apparent distress Respiratory: crackles (bases, L>R), other (Horacio to bulb suction, thin serosang drainage. ~20 cc since 0600.) Cardiac/Chest: regular rate, rhythm (paced), other (Sternum grossly stable. Sternotomy CDI. Diffuse localized ecchymoses. A&V wires intact.) Abdomen: non-tender, soft Skin: warm/dry Extremities: swelling (trace generalized) ICD10 Worksheet Patient Problems: Problems Problem Status Onset Acute blood loss anemia Acute Status post ablation of atrial fibrillation Acute ~09/05/16 Status post mitral valve repair Acute ~09/05/16 Status post tricuspid valve repair Acute ~09/05/16 Atrial fibrillation Chronic Chronic anticoagulation Chronic G6PD deficiency Chronic Moderate to severe pulmonary hypertension Chronic Secondary tricuspid regurgitation Chronic Severe mitral regurgitation Chronic
[2016-09-08 08:53] LABS: HEMATOCRIT 22.5 % (40.0-51.0); HEMOGLOBIN 7.6 g/dL (13.7-17.5); MEAN CELL HEMOGLOBIN 34.1 pg (27.9-34.1); MEAN CELL HEMOGLOBIN CONCENTR. 33.8 g/dL (32.4-36.7); MEAN CELL VOLUME 100.9 fL (81.5-99.8); RED BLOOD CELL COUNT 2.23 10^6/uL (4.40-6.38); RED CELL DISTRIBUTION WIDTH 15.7 % (11.5-15.2)
[2016-09-08] MEDS: ASPIRIN 81 MG CHEWABLE TAB PO SCH (09:48)
[2016-09-08] MEDS: PANTOPRAZOLE SODIUM 40 MG TAB PO SCH ×2 (09:48→20:58)
[2016-09-08] MEDS: VALSARTAN 40 MG TAB PO SCH ×2 (09:49→20:58)
[2016-09-08] MEDS: CHOLECALCIFEROL VIT D3 2,000 UNITS TAB/CAP PO SCH (09:50)
[2016-09-08] MEDS: SENNOSIDES/DOCUSATE SODIUM TAB PO SCH (09:50)
[2016-09-08] MEDS ORDERED: FUROSEMIDE 20 MG/2 ML VIAL IVP ONE ×2 (12:00→14:15)
[2016-09-08] MEDS: WARFARIN SODIUM 5 MG TAB PO SCH (17:19)
[2016-09-08] MEDS: FERROUS SULFATE 325 MG TAB PO SCH (20:59)
[2016-09-08] MEDS ORDERED: SENNOSIDES/DOCUSATE SODIUM TAB PO PRN (21:00)
[2016-09-09] MEDS: HYDROCODONE/APAP 5/325 TAB PO PRN ×2 (00:02→20:01)
[2016-09-09] MEDS ORDERED: DIAZEPAM 5 MG TAB PO ONE (06:00)
[2016-09-09] MEDS ORDERED: NS 1,000 ML IV ONE (06:00)
[2016-09-09] MEDS ORDERED: ceFAZolin 2 GM/DEXTROSE 100 ML IV ONE ×2 (06:00→12:00)
[2016-09-09] MEDS ORDERED: diphenhydrAMINE 25 MG CAP PO ONE (06:00)
[2016-09-09] MEDS ORDERED: BACITRACIN IRRIGATION/NS 50,000 UNITS/1,000 ML BTL IRR ONE ×2 (06:00→12:00)
[2016-09-09 06:15] LABS: HEMATOCRIT 23.9 % (40.0-51.0); HEMOGLOBIN 8.1 g/dL (13.7-17.5); MEAN CELL HEMOGLOBIN 33.9 pg (27.9-34.1); MEAN CELL HEMOGLOBIN CONCENTR. 33.9 g/dL (32.4-36.7); RED BLOOD CELL COUNT 2.39 10^6/uL (4.40-6.38)
[2016-09-09 06:23] LABS: INR 1.4 (0.83-1.16); PROTIME(PATIENT) 17.1 SEC (12.0-15.0)
[2016-09-09 06:24] LABS: APTT 37.7 SEC (23.0-38.0)
[2016-09-09 06:48] LABS: ALANINE AMINOTRANSFERASE 33 IU/L (21-72); ALBUMIN 2.9 g/dL (3.5-5.0); ALKALINE PHOSPHATASE 32 IU/L (38-126); ANION GAP 6 mEq/L (8-16); ASPARTATE AMINOTRANSFERASE 45 IU/L (17-59); BILIRUBIN,TOTAL 0.9 mg/dL (0.1-1.4); CALCIUM 7.8 mg/dL (8.5-10.4); CARBON DIOXIDE 26 mEq/l (22-31); CHLORIDE 100 mEq/L (97-110); CREATININE 0.9 mg/dL (0.7-1.3); GLOMERULAR FILTRATION RATE > 60; GLUCOSE 113 mg/dL (70-100); POTASSIUM 4.3 mEq/L (3.5-5.2); SODIUM 132 mEq/L (134-144); TOTAL PROTEIN 5.2 g/dL (6.3-8.2)
--- NOTE | 2016-09-09 07:25 | SOAPPROG ---
SOAP Progress Note Assessment/Plan: POD#4 complex MV rpr (A3 goretex chordal reconstruction and #32Physio ring), TVA #34MC3 ring, CoxMaze4 Sx severe MR - Ant leaflet prolapse and annular dilatation amenable to repair. Extubated in the OR. Stable early postop course. Antithrombotic prophylaxis with Coumadin. Pre-existing INR parameters of 2-3 sufficient. Secondary TR - Amenable to ring annuloplasty. Antithrombotic prophylaxis as per MV. Dilated cardiomyopathy - Slightly reduced LV systolic fx intraop. from CPB on dobutamine. Fixed dose x 24h for optimized hemodynamics. Staggered intro of heart failure regimen in progress. Longstanding slow AF w ASTRID - JR early postop Maze and AV paced. Underlying rhythm per EP cards fine AF w SVR and left on VVI backup. Remains pacer dependent. PPM today. Re-anticoagulation in progress. Lovenox bridge pending INR < 2. Acute expected blood loss anemia - possible exacerbation by hx G6PD deficiency. s/p 1U PRBC 09/08 with slight increase in HCT (23.9 from 22.5). Will f/u CXR post PPM implantation to r/o new effusions. Fe suppl x 2 weeks. Stress hyperglycemia - Preop A1c of 6.3%. Postop hyperglycemia managed with low dose insulin gtt. No subsequent correctional needs and monitoring suspended. Subjective: Denies CP/SOB. 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) Abdomen: non-tender, soft, No distended Skin: normal color, warm/dry Extremities: pedal edema Neuro/Psych: no motor/sensory deficits, alert, normal mood/affect, oriented x 3 ICD10 Worksheet Patient Problems: Problems Problem Status Onset Acute blood loss anemia Acute Status post ablation of atrial fibrillation Acute ~09/05/16 Status post mitral valve repair Acute ~09/05/16 Status post tricuspid valve repair Acute ~09/05/16 Atrial fibrillation Chronic Chronic anticoagulation Chronic G6PD deficiency Chronic Moderate to severe pulmonary hypertension Chronic Secondary tricuspid regurgitation Chronic Severe mitral regurgitation Chronic
--- NOTE | 2016-09-09 10:50 | ECHO ---
[id number] + + [address] : : [place] [address] : : [phone] + + Adult Echocardiographic Report + -----+ :Name: Matt DE LA FUENTE Date: 09/09/2016 08:06 AM BP: 123/57 mmHg : : Hospital Admission Number: [id number] Location : 212: :: 1950 Gender: Male Height: 64 in : :Age: 65 yrs Race: HL, Weight: 136 lb : :Reason For Study: routine baseline postop : : BSA: 1.7 meters2 : :History: s/p MVR #32 ring and TVA #34 ring. : + -----+ MMode/2D Measurements \T\ Calculations IVSd: 1.2 cm RVDd: 3.3 cm FS: 27.8 % Ao root diam: LVPWd: 0.87 cm LVIDd: 5.0 cm EDV(Teich): 3.3 cm LVIDs: 3.6 cm 117.8 ml ESV(Teich): 54.5 ml EF(Teich): 53.7 % LVLd ap4: 8.5 cm SV(MOD-sp4): EDV(MOD-sp4): 80.0 ml 159.0 ml LVLs ap4: 7.7 cm ESV(MOD-sp4): 79.0 ml EF(MOD-sp4): 50.3 % Normal Measurement Values: + + :LVIDd (3.5-5.7cm) IVSd (0.6-1.1cm) LVPWd (0.6-1.1cm) Aortic Root (2.0-3.7cm)Left Atrium (1.5-4.0cm): :LV Vol(d) (76-115ml) LV Vol(s) (29-48ml) Ejec Fraction (50-65%)PV Patrick (0.6- 1.2m/s) TV Patrick (0.4-1.0m/s) : :MV E Patrick (0.8-1.0m/s)MV A Patrick (0.3-1.0m/s)LVOT Patrick (0.7-1.2m/s) Asc Ao Patrick ( 0.9-1.8m/s) : + + Doppler Measurements \T\ Calculations MV V2 max: MV P1/2t max patrick: Ao V2 max: AI max patrick: 174.9 cm/sec 187.0 cm/sec 131.5 cm/sec 381.0 cm/sec MV max PG: MV P1/2t: 71.1 msec Ao max PG: AI max P.2 mmHg MVA(P1/2t): 3.1 cm2 6.9 mmHg 58.1 mmHg MV V2 mean: MV dec slope: AI dec slope: 93.1 cm/sec 234.6 cm/sec2 MV mean P.0 cm/sec2 AI P1/2t: 4.4 mmHg 475.8 msec MV V2 VTI: 37.4 cm LV V1 max: TV V2 max: PA V2 max: TR max patrick: 62.0 cm/sec 71.4 cm/sec 82.8 cm/sec 283.7 cm/sec LV V1 max PG: TV max P.0 mmHg PA max PG: TR max P.5 mmHg TV V2 mean: 2.7 mmHg 32.2 mmHg 38.6 cm/sec RAP systole: TV mean P.73 mmHg 5.0 mmHg TV V2 VTI: 21.2 cm RVSP(TR): 37.2 mmHg Left Ventricle The left ventricle is normal in size and function. There is normal left ventricular wall thickness. Ejection Fraction = 50-55%. Septal motion is consistent with post-operative state. Right Ventricle The right ventricle is normal in size and function. Atria The left atrium is severely dilated. The Left Atrial Volume is 68 ml/m2. The right atrium is borderline dilated. Mitral Valve S/P MVR ring #32. Posterior leaflet appears fixed. Thickened/redundant anterior leaflet noted. Mean gradient across the MV 4mmHg. There is trace to mild mitral regurgitation. Tricuspid Valve S/P #34 TV ring. Mean gradient across the TV 1mmHg. There is trace to mild tricuspid regurgitation. Right ventricular systolic pressure is 37mmHg. Aortic Valve The aortic valve is trileaflet. Mildly sclerotic aortic valve leaflets. There is no aortic stenosis. Mild aortic regurgitation. Pulmonic Valve The pulmonic valve is not well visualized. trace to mild pulmonic valvular regurgitation. Great Vessels The aortic root is normal size. Pericardium/Pleural There is no pericardial effusion. Conclusion A two-dimensional transthoracic echocardiogram with M-mode and Doppler was performed. The left ventricle is normal in size and function. Ejection Fraction = 50-55%. The left atrium is severely dilated. The Left Atrial Volume is 68 ml/m2. The right atrium is borderline dilated. S/P MVR ring #32. Posterior leaflet appears fixed. Thickened/redundant anterior leaflet noted. Mean gradient across the MV 4mmHg. There is trace to mild mitral regurgitation. S/P #34 TV ring. Mean gradient across the TV 1mmHg. There is trace to mild tricuspid regurgitation. Right ventricular systolic pressure is 37mmHg. Mildly sclerotic aortic valve leaflets. Mild aortic regurgitation. trace to mild pulmonic valvular regurgitation. Final Reading Physician: Irma Fields signed on 09/09/2016 10:49 AM Ordering Physician: Nasreen Soto Performed By: Jaci Fitch
[2016-09-09] MEDS ORDERED: fentaNYL 100 MCG/2 ML INJ ONE (12:46)
[2016-09-09] MEDS ORDERED: PROPOFOL 200 MG/20 ML VIAL ONE ×3 (12:46→12:50)
[2016-09-09] MEDS ORDERED: LIDOCAINE 1% 300 MG/30 ML SDV ONE (13:14)
[2016-09-09] MEDS ORDERED: BUPIVACAINE 0.5% 30 ML SDV ONE (13:15)
[2016-09-09] MEDS ORDERED: LIDO/EPI 1% **for epidural** 30 ML SDV ONE (13:16)
[2016-09-09] MEDS ORDERED: MIDAZOLAM 2 MG/2 ML VIAL ONE (13:32)
[2016-09-09] MEDS ORDERED: KETAMINE 100 MG/10 ML SYR ONE (14:25)
[2016-09-09] MEDS ORDERED: POTASSIUM CL 20 MEQ TAB PO SCH (15:00)
[2016-09-09] MEDS ORDERED: TORSEMIDE 20 MG TAB PO SCH ×2 (15:00→17:00)
[2016-09-09] MEDS ORDERED: AMIODARONE HCL 200 ML IV ONE (15:42)
--- NOTE | 2016-09-09 16:18 | CPEKG ---
Heart Rate: 81 RR Interval: 741 P-R Interval: 160 QRSD Interval: 158 QT Interval: 460 QTC Interval: 534 P [place]: -90 QRS [place]: -123 T Wave [place]: 47 EKG Severity - ABNORMAL ECG - EKG Impression: VENTRICULAR-PACED COMPLEXES EKG Impression: PVC Electronically Signed By: Davidson Stevenson 09-Sep-2016 17:37:31
[2016-09-09] MEDS: DUTASTERIDE 0.5 MG CAP PO SCH (18:10)
[2016-09-09] MEDS: CHOLECALCIFEROL VIT D3 2,000 UNITS TAB/CAP PO SCH (18:10)
[2016-09-09] MEDS: ASPIRIN 81 MG CHEWABLE TAB PO SCH (18:10)
[2016-09-09] MEDS: WARFARIN SODIUM 2.5 MG TAB PO SCH (18:10)
[2016-09-09] MEDS: PANTOPRAZOLE SODIUM 40 MG TAB PO SCH ×2 (18:11→20:03)
[2016-09-09] MEDS: VALSARTAN 40 MG TAB PO SCH (18:12)
[2016-09-09] MEDS: FERROUS SULFATE 325 MG TAB PO SCH (20:01)
[2016-09-09] MEDS ORDERED: AMIODARONE HCL 540 MG in D5W 300 ML IV ONE (21:30)
[2016-09-10 06:30] LABS: % IMMATURE GRANULYOCYTES 1.5 % (0.0-1.1); ABSOLUTE IMMATURE GRANULOCYTES 0.13 10^3/uL (0.00-0.10); ADD DIFF? NO; ADD MORPH? YES; ADD SCAN? NO; ATYPICAL LYMPHOCYTE FLAG 30 (0-99); FRAGMENT RBC FLAG 0 (0-99); HEMATOCRIT 27.2 % (40.0-51.0); HEMOGLOBIN 9.1 g/dL (13.7-17.5); LEFT SHIFT FLG 50 (0-99); LIPEMIA HEMOLYSIS FLAG 80 (0-99); MEAN CELL HEMOGLOBIN 32.5 pg (27.9-34.1); MEAN CELL HEMOGLOBIN CONCENTR. 33.5 g/dL (32.4-36.7); MEAN CELL VOLUME 97.1 fL (81.5-99.8); MEAN PLATELET VOLUME 10.7 fL (8.7-11.7); PLATELET CLUMPS FLAG 0 (0-99); PLATELET COUNT 111 10^3/uL (150-400); RED CELL DISTRIBUTION WIDTH 19.5 % (11.5-15.2)
[2016-09-10 06:34] LABS: NRBC-AUTO% 2.3 % (0.0-0.2)
[2016-09-10 06:36] LABS: INR 1.56 (0.83-1.16); PROTIME(PATIENT) 18.7 SEC (12.0-15.0)
[2016-09-10 06:50] LABS: MACROCYTES 1+; MICROCYTES 1+; PLATELET ESTIMATE DECREASED (ADEQ); POLYCHROMASIA 1+
[2016-09-10 07:02] LABS: ANION GAP 7 mEq/L (8-16); CALCIUM 7.6 mg/dL (8.5-10.4); CARBON DIOXIDE 24 mEq/l (22-31); CHLORIDE 102 mEq/L (97-110); CREATININE 0.9 mg/dL (0.7-1.3); GLOMERULAR FILTRATION RATE > 60; GLUCOSE 117 mg/dL (70-100); SODIUM 133 mEq/L (134-144)
--- NOTE | 2016-09-10 07:45 | SOAPPROG ---
SOAP Progress Note Assessment/Plan: Assessment: POD#5 complex MV rpr (A3 goretex chordal reconstruction and # 32Physio ring), TVA #34MC3 ring, CoxMaze4 POD#1 dual chamber permanent pacemaker. Sx severe MR - Ant leaflet prolapse and annular dilatation amenable to repair. Extubated in the OR. Stable early postop course. Antithrombotic prophylaxis with Coumadin. Pre-existing INR parameters of 2-3 sufficient. Secondary TR - Amenable to ring annuloplasty. Antithrombotic prophylaxis as per MV. Dilated cardiomyopathy - Slightly reduced LV systolic fx intraop. from CPB on dobutamine. Fixed dose x 24h for optimized hemodynamics. Staggered intro of heart failure regimen in progress. Longstanding slow AF w ASTRID - JR early postop Maze and AV paced. Underlying rhythm per EP cards fine AF w SVR and left on VVI backup until PPM placed. Started on amiodarone post implant. Re-anticoagulation in progress. Lovenox bridge pending INR < 1.8. Acute expected blood loss anemia - Exacerbated by hx G6PD deficiency. Stable s/ p 2u PRBC. VTE prophylaxis with lovenox. Fe suppl x 2 weeks. Stress hyperglycemia - Preop A1c of 6.3% suggestive of prediabetes. Postop hyperglycemia managed with low dose insulin gtt. Prompt transition to SSI. No subsequent correctional needs and monitoring suspended. Followup screening per PCP. Plan: Resume Lovenox tonight. Cont home Coumadin dosing. Amiodarone 200mg BID after IV load completed. Inc to BID diuresis. Consider resume Valsartan tonight. Dispo - Home this afternoon vs tomorrow. 09/10/16 07:41 Subjective: Feels much better than yest. Good walk and breakfast this am. Satisfactory analgesia. Objective: Vital Signs Temp Pulse Resp BP Pulse Ox 37.0 C 61 13 118/54 L 95 09/10/16 07:23 09/10/16 07:23 09/10/16 07:23 09/10/16 07:23 09/10/16 07:23 Laboratory Results 09/10/16 06:00 09/10/16 06:00 09/09/16 09/10/16 09/11/16 05:59 05:59 05:59 Intake Total 820 1262 Output Total 1240 550 Balance -420 712 PT 18.7 SEC (12.0-15.0) H 09/10/16 06:00 INR 1.56 (0.83-1.16) H 09/10/16 06:00 AV paced. Nl pacer fx by interrogation earlier this am. Some hypotension yest pm -> addtl PRBC, IVF received and Valsartan held. Positive fluid balance as expected. On IV amio per protocol. Satting well on RA. Labs ok. INR beginning to rise. Await today's CXR. - Pending Discharge Pending Discharge Within 24 Hours: Yes Pending Discharge Date: 09/11/16 Pending Discharge Time: 11:00 Physical Exam - Physical Exam General Appearance: alert, no apparent distress (in good spirits) Respiratory: crackles (bases) Cardiac/Chest: regular rate, rhythm, other (Sternum grossly stable. Sternotomy CDI. Dissipating ecchymosis. Left pacer pocket soft, flat.) Abdomen: non-tender, soft Skin: warm/dry Extremities: swelling (1+ gen) ICD10 Worksheet Patient Problems: Problems Problem Status Onset Acute blood loss anemia Acute Status post ablation of atrial fibrillation Acute ~09/05/16 Status post mitral valve repair Acute ~09/05/16 Status post tricuspid valve repair Acute ~09/05/16 Atrial fibrillation Chronic Chronic anticoagulation Chronic G6PD deficiency Chronic Moderate to severe pulmonary hypertension Chronic Secondary tricuspid regurgitation Chronic Severe mitral regurgitation Chronic
--- NOTE | 2016-09-10 08:53 | CPEKG ---
Heart Rate: 63 RR Interval: 952 P-R Interval: 168 QRSD Interval: 162 QT Interval: 548 QTC Interval: 562 P [place]: 234 QRS [place]: -76 T Wave [place]: 97 EKG Severity - ABNORMAL ECG - EKG Impression: A-V DUAL-PACED RHYTHM WITH SOME INHIBITION Electronically Signed By: Davidson Stevenson 10-Sep-2016 09:02:46
[2016-09-10] MEDS ORDERED: TORSEMIDE 20 MG TAB PO SCH ×4 (09:00→15:30)
[2016-09-10] MEDS ORDERED: POTASSIUM CL 20 MEQ TAB PO SCH (09:00)
[2016-09-10] MEDS: CHOLECALCIFEROL VIT D3 2,000 UNITS TAB/CAP PO SCH (09:25)
[2016-09-10] MEDS: ENOXAPARIN 60 MG/0.6 ML SYR SC SCH ×2 (09:25→22:38)
[2016-09-10] MEDS: PANTOPRAZOLE SODIUM 40 MG TAB PO SCH ×2 (09:25→22:35)
[2016-09-10] MEDS: ASPIRIN 81 MG CHEWABLE TAB PO SCH (09:25)
[2016-09-10] MEDS: POTASSIUM CL 20 MEQ TAB PO SCH ×2 (15:34→22:35)
[2016-09-10] MEDS: WARFARIN SODIUM 5 MG TAB PO SCH (15:34)
--- NOTE | 2016-09-10 16:02 | PDCARPN ---
Cardiology Progress Note Assessment/Plan: Assessment: MV repair/ TVA/ CoxMaze 5 days ago. Dual Chamber PPM placed yesterday. Pacer site Left pec region. No induration, redness, or bleeding. It is tender to touch. Reviewed pacemaker precautions. He is feeling better today. Plan: He will follow up with Dr Rod in 3 to 4 weeks. In one week he will need Pacer check, and wound check. Will try to coordinate visits with [facility] follow-up. 09/10/16 15:55 Subjective: "I Feel better today" Reviewed/Discussed With: multidisciplinary team Objective: Vital Signs (8 Hrs) Temp Pulse Resp BP Pulse Ox 09/10/16 12:00 36.9 C 63 12 130/62 H 96 Intake/Output (24 Hrs) 09/09/16 09/10/16 09/11/16 05:59 05:59 05:59 Intake Total 820 1262 Output Total 1240 550 275 Balance -420 712 -275 Intake: Oral (ml) 800 400 IV Intake (ml) 20 40 IV Infused (ml) 422 Amiodarone HCl 200 ml @ 322 33.333 mls/hr IV ONCE ONE Rx#:[id number] ceFAZolin 1 GM/DEXTROSE 100 50 ml @ 200 mls/hr IV Q8HRS MARILEE Rx#:[id number] Whole Blood (ml) 400 Output: Urine (ml) 1200 550 275 Toilet 875 200 200 Urinal 325 350 75 Chest Tube Output (ml) 40 Location 2 40 Other: Weight 61.2 kg 63.8 kg Intake Quantity Yes Yes Sufficient Number of Voids Toilet 2 Urinal 1 1 Number of Stools Toilet 3 1 1 Result Diagrams: 09/10/16 06:00 09/10/16 06:00 - Physical Exam Cardiovascular: regular rate and rhythm Respiratory: clear to auscultate bilat, No no crackles, No no wheezes Skin: warm Neurologic: AAOx3 Psychiatric: cooperative, interactive ICD10 Worksheet Patient Problems: Problems Problem Status Onset Acute blood loss anemia Acute Status post ablation of atrial fibrillation Acute ~09/05/16 Status post mitral valve repair Acute ~09/05/16 Status post tricuspid valve repair Acute ~09/05/16 Atrial fibrillation Chronic Chronic anticoagulation Chronic G6PD deficiency Chronic Moderate to severe pulmonary hypertension Chronic Secondary tricuspid regurgitation Chronic Severe mitral regurgitation Chronic
[2016-09-10] MEDS: HYDROCODONE/APAP 5/325 TAB PO PRN (22:34)
[2016-09-10] MEDS: FERROUS SULFATE 325 MG TAB PO SCH (22:35)
[2016-09-10] MEDS: VALSARTAN 40 MG TAB PO SCH (22:36)
[2016-09-10] MEDS: AMIODARONE HCL 200 MG TAB PO SCH (22:37)
[2016-09-11 05:49] LABS: HEMATOCRIT 26.6 % (40.0-51.0); HEMOGLOBIN 8.9 g/dL (13.7-17.5)
[2016-09-11 05:53] LABS: INR 1.56 (0.83-1.16); PROTIME(PATIENT) 18.7 SEC (12.0-15.0)
[2016-09-11 05:58] LABS: POTASSIUM 3.8 mEq/L (3.5-5.2)
[2016-09-11] MEDS ORDERED: POTASSIUM CL 20 MEQ TAB PO ONE (06:14)
--- NOTE | 2016-09-11 06:17 | SOAPPROG ---
SOAP Progress Note Assessment/Plan: POD#6 complex MV rpr (A3 goretex chordal reconstruction and #32Physio ring), TVA #34MC3 ring, CoxMaze4 POD#2 Dual chamber PPM implantation Sx severe MR - Ant leaflet prolapse and annular dilatation amenable to repair. Extubated in the OR. Stable early postop course. Antithrombotic prophylaxis with Coumadin. Pre-existing INR parameters of 2-3 sufficient. Secondary TR - Amenable to ring annuloplasty. Antithrombotic prophylaxis as per MV. Dilated cardiomyopathy - Slightly reduced LV systolic fx intraop. from CPB on dobutamine. Fixed dose x 24h for optimized hemodynamics. Staggered intro of heart failure regimen in progress. Longstanding slow AF s/p CM 4 with post-op pacer dependence s/p PPM implantation. Re-anticoagulation in progress. Acute expected blood loss anemia - possible exacerbation by hx G6PD deficiency. s/p 2U PRBC. Stable. Fe suppl x 2 weeks. Stress hyperglycemia - Preop A1c of 6.3%. Postop hyperglycemia managed with low dose insulin gtt. No subsequent correctional needs and monitoring suspended. Subjective: Minor incisional CP relieved with medication. Denies SOB. Objective: Vital Signs Temp Pulse Resp BP Pulse Ox 36.6 C 63 18 130/61 H 95 09/11/16 04:00 09/11/16 04:00 09/11/16 04:00 09/11/16 04:00 09/11/16 04:00 Laboratory Results 09/11/16 04:30 09/11/16 04:30 09/10/16 09/11/16 09/12/16 05:59 05:59 05:59 Intake Total 1262 600 Output Total 550 2200 Balance 712 -1600 PT 18.7 SEC (12.0-15.0) H 09/11/16 04:30 INR 1.56 (0.83-1.16) H 09/11/16 04:30 - Pending Discharge Pending Discharge Within 24 Hours: Yes Pending Discharge Date: 09/12/16 Pending Discharge Time: 11:00 Physical Exam - Physical Exam General Appearance: WD/WN, alert, no apparent distress EENT: No scleral icterus (R), No scleral icterus (L) Neck: normal inspection Respiratory: No respiratory distress Cardiac/Chest: other (AV paced) Abdomen: non-tender, soft, No distended Skin: normal color, warm/dry Extremities: pedal edema Neuro/Psych: no motor/sensory deficits, alert, normal mood/affect, oriented x 3 ICD10 Worksheet Patient Problems: Problems Problem Status Onset Acute blood loss anemia Acute Status post ablation of atrial fibrillation Acute ~09/05/16 Status post mitral valve repair Acute ~09/05/16 Status post tricuspid valve repair Acute ~09/05/16 Atrial fibrillation Chronic Chronic anticoagulation Chronic G6PD deficiency Chronic Moderate to severe pulmonary hypertension Chronic Secondary tricuspid regurgitation Chronic Severe mitral regurgitation Chronic
[2016-09-11 07:32] VITALS: BP 114/59; PULSE 69; RESP 12; TEMP 97.7; O2SAT 98
[2016-09-11] MEDS: AMIODARONE HCL 200 MG TAB PO SCH (08:34)
[2016-09-11] MEDS: CHOLECALCIFEROL VIT D3 2,000 UNITS TAB/CAP PO SCH (08:34)
[2016-09-11] MEDS: VALSARTAN 40 MG TAB PO SCH (08:34)
[2016-09-11] MEDS: ASPIRIN 81 MG CHEWABLE TAB PO SCH (08:34)
[2016-09-11] MEDS: PANTOPRAZOLE SODIUM 40 MG TAB PO SCH (08:35)
[2016-09-11] MEDS: DUTASTERIDE 0.5 MG CAP PO SCH (08:35)
[2016-09-11] MEDS ORDERED: POTASSIUM CL 20 MEQ TAB PO SCH ×2 (09:00→15:00)
[2016-09-11] MEDS: TORSEMIDE 20 MG TAB PO SCH ×2 (10:12→10:13)
--- NOTE | 2016-09-11 10:26 | PDDCSUM ---
Discharge Summary Discharge Summary: ADMISSION DATE: 09/05/16 DISCHARGE DATE: 09/11/16 ADMISSION DX: 1. Severe mitral valve insufficiency 2. Moderate tricuspid valve insufficiency 3. Long-standing persistent atrial fibrillation 4. Dilated cardiomyopathy with class III congestive heart failure DISCHARGE DX: 1. Severe mitral valve insufficiency 2. Moderate tricuspid valve insufficiency 3. Long-standing persistent atrial fibrillation 4. Dilated cardiomyopathy with class III congestive heart failure 5. Post-operative junctional rhythm requiring PPM implantation 6. Post-operative acute blood loss anemia PROCEDURES 09/05/16, Bharath Mack: 1. Complex mitral valve repair with Gortex chordal reconstruction to A3 and #32 annuloplasty ring 2. Tricuspid valve annuloplasty with #34 annuloplasty ring 3. [place]-Maze 4 09/09/16, Garfield Rod: 1. Implantation of dual-chambered pacemaker HOSPITAL COURSE BY PROBLEM LIST 1. Severe mitral valve insufficiency - s/p complex mitral valve repair with Gortex chordal reconstruction to A3 and #32 annuloplasty ring. Thromboprophylaxis with Coumadin for INR goal 2-3 2. Moderate tricuspid valve insufficiency - s/p tricuspid valve annuloplasty with #34 annuloplasty ring. Thromboprophylaxis as per MVR. 3. Long-standing persistent atrial fibrillation - s/p [place]-Maze 4 with post-op pacer dependence s/p PPM implantation. Thromboprophylaxis with Coumadin for INR goal 2-3, duration pending rhythm stability. Amiodarone started prophylactically for rhythm stability. 4. Dilated cardiomyopathy with class III congestive heart failure - medically managed with ARB and Torsemide. 5. Post-operative acute blood loss anemia with coagulopathy - stable s/p 2 units PRBCs. CONDITION Good DISPOSITION Home, self-care ACTIVITY Pt was instructed on sternal precautions, activity limitations, and which problems to call [facility] with. Please see Discharge Plan in chart for specifics. D/C MEDICATIONS On admission: 1. Warfarin Sodium [Coumadin 2.5MG (*)] 2.5 mg PO MOFR 2. Warfarin Sodium [Coumadin 5MG (*)] 5 mg PO SUTUWETHSA 3. Cholecalciferol Vit D3 [Vitamin D3 2000 units tab (OTC)] 2,000 units PO DAILY 4. Dutasteride [Avodart 0.5 MG (*)] 0.5 mg PO Q2D 08/27/16 [Last Taken 09/03/16] 5. Herbals/Supplements -Info Only 1 ea PO DAILY 08/27/16 [Last Taken 08/29/16] New: 1. Amiodarone HCl [Pacerone (*)] 200 mg PO BID #60 2. Aspirin [Aspirin 81mg (*)] 81 mg PO DAILY #30 3. Ferrous Sulfate [Ferrous Sulf 325 MG (*)] 325 mg PO HS #14 4. Hydrocodone/APAP 5/325 [[place] 5/325 (*)] 1 - 2 tab PO Q4HRS PRN #40 5. Potassium Cl [Klor-Con 20 meq (*)] 40 meq PO DAILY #30 6. Torsemide [Demadex] 40 mg PO DAILY10 #30 7. Valsartan [Diovan (*)] 40 mg PO BID #60 PENDING STUDIES/LABS 1. CXR prior to surgical follow-up 2. 09/13 INR at [facility] - continued management as per PCP (Dr. Antonio) F/U APPOINTMENTS 1. Bharath Mack - 09/17/16, 2:00 PM
--- NOTE | 2016-09-13 08:48 | EPPROC ---
Electrophysiology Procedure Note: PROCEDURE PERFORMED: Implantation of an A/V Pacemaker Subclavian vein angiography Fluoroscopy INDICATION: This is a 66 yr old male with recent MV surgery and Maze procedure. Post surgery the pt was pacing in the ventricle 99% of the time and had low HR when the temporary pacemaker was turned off. In view of this it was decided to perform dual chamber pacemaker implant. PROCEDURE NOTE: Patient presented to the cardiac catheterization laboratory in a fasting, post absorptive state. Anesthesiologist administered moderate sedation. The left infraclavicular area was prepped and draped in the usual sterile fashion. Lidocaine plus bupivacaine was used for local anesthesia. Left subclavian venography was performed by injection of iodinated contrast into the left antecubital vein. This was done to assure patency of the vein and also to assess for any anatomical aberrations. Using a combination of blunt and sharp dissection and electrocautery, the dissection was carried down to the prepectoral fascia. All bleeding was controlled with electrocautery. Fluoroscopy was utilized during the entire procedure for venous access and placement of the leads. Using the usual technique, left cephalic vein was accessed and a glidewire was placed. Through this initially a 9F and later a 7F sheath was passed. Placement of the guidewires into the venous system was confirmed by low- pressure blood return and also by visualizing the guidewires advancing into the inferior vena cava. A purse string suture was applied around the guidewires. An active fixation ventricular lead was advanced into the right ventricular apex and screwed in place. An active fixation atrial lead was advanced into the right atrial appendage and screwed in place. The peel away sheaths were removed. Pacing thresholds, sensing parameters and lead impedances were measured. There was no diaphragmatic stimulation at maximum output. The leads were sutured to the prepectoral fascia with 3 nonabsorbable sutures each. The pocket was created and it was flushed using antibiotic solution. It was inspected for any bleeding. The leads were attached to the pacemaker securely. The pacemaker was inserted into the pocket and secured in place with a nonabsorbable suture. Before and during the procedure, pt had significant hypotension of unknown etiology. With Epi bolus, it was relieved. Fluoroscopy was performed in [place] and [place] planes to verify right-sided placement of the leads. Also fluoroscopy of the pacemaker pocket was performed. The pacemaker pocket was closed in 3 layers with absorbable vicryl sutures. Steristrips were placed. Appropriate dressing was applied. The patient left the cardiac catheterization laboratory in stable condition. Serial Numbers: Device: [place] [employer] Dairyrtronik Dudley 8 SN [id number] Atrial Lead: Biotronik SOlia S45 SN [id number] Ventricular Lead: Biotronik Solia S53 SN [id number] Stimulation Thresholds & Impedance Measurements: Atrial Lead 1mV, 1.2@0.5ms, 597Ohms Ventricular Lead 5.6mV, 0.8@0.4ms, 698Ohms Levy Pacing Parameters Pacing mode: DDD CLS Lower rate: 70 Upper tracking rate: 120 Upper sensor rate: 120 Patient Problems: Problems Problem Status Onset Acute blood loss anemia Acute Status post ablation of atrial fibrillation Acute ~09/05/16 Status post mitral valve repair Acute ~09/05/16 Status post tricuspid valve repair Acute ~09/05/16 Atrial fibrillation Chronic Chronic anticoagulation Chronic G6PD deficiency Chronic Moderate to severe pulmonary hypertension Chronic Secondary tricuspid regurgitation Chronic Severe mitral regurgitation Chronic
== END 2016-09-11 14:23 | disposition home or self-care (01) | DRG 220 ==
LOC: F2N 06:45 → F2W 09-06 11:50
PROVIDERS: ADMIT Thoracic Surgery (Cardiothoracic Vascular Surgery); ATTEND Thoracic Surgery (Cardiothoracic Vascular Surgery)
PROC: 02580ZZ Destruction of Conduction Mechanism, Open Approach (ICD-10-PCS; principal; 2016-09-05 08:45)
PROC: 02L70ZK Occlusion of Left Atrial Appendage, Open Approach (ICD-10-PCS; principal; 2016-09-05 08:45)
PROC: 02UG0JZ Supplement Mitral Valve with Synthetic Substitute, Open Approach (ICD-10-PCS; principal; 2016-09-05 08:45)
PROC: 5A1221Z Performance of Cardiac Output, Continuous (ICD-10-PCS; principal; 2016-09-05 08:45)
PROC: 02UJ0JZ Supplement Tricuspid Valve with Synthetic Substitute, Open Approach (ICD-10-PCS; principal; 2016-09-05 08:45)
PROC: B245ZZ4 Ultrasonography of Left Heart, Transesophageal (ICD-10-PCS; principal; 2016-09-05 08:45)
PROC: 02H63JZ Insertion of Pacemaker Lead into Right Atrium, Percutaneous Approach (ICD-10-PCS; 2016-09-05 08:45)
PROC: 02HK3JZ Insertion of Pacemaker Lead into Right Ventricle, Percutaneous Approach (ICD-10-PCS; 2016-09-05 08:45)
PROC: 0JH606Z Insertion of Pacemaker, Dual Chamber into Chest Subcutaneous Tissue and Fascia, Open Approach (ICD-10-PCS; 2016-09-05 08:45)
DX: I08.1 Rheumatic disorders of both mitral and tricuspid valves (principal); I50.9 Heart failure, unspecified; D62 Acute posthemorrhagic anemia; I48.2 Chronic atrial fibrillation; I49.5 Sick sinus syndrome; Z79.01 Long term (current) use of anticoagulants; I11.0 Hypertensive heart disease with heart failure; E78.5 Hyperlipidemia, unspecified; I27.2 Other secondary pulmonary hypertension; R73.9 Hyperglycemia, unspecified; I42.0 Dilated cardiomyopathy
CPT/HCPCS: 82947-QW; 83010-90; 97116-GP; 97161-GP; 97165-GO; C1769; C1785; C1898; G8978-GP-CJ; G8979-GP-CI; G8980-GP-CI; G8987-GO-CI; G8988-GO-CI; G8989-GO-CI; J0153; J0171; J0282; J0690; J1100; J1250; J1265; J1644; J1650; J1815; J1885; J1940; J2001; J2150; J2250; J2260; J2370; J2405; J2704; J2720; J2765; J2930; J3010; J7060; P9016; P9021; P9041; Q9967

== ENCOUNTER → 2016-09-17 | Outpatient (CLI) | payer OTHER | LOC: FIMAGING 13:08 | PROVIDERS: ATTEND Thoracic Surgery (Cardiothoracic Vascular Surgery) | DX: J90 Pleural effusion, not elsewhere classified (principal); Z95.0 Presence of cardiac pacemaker ==

== ENCOUNTER → 2016-10-02 | Outpatient (CLI) | payer OTHER, MEDICARE | LOC: BHFA 11:00 | PROVIDERS: ATTEND Internal Medicine Cardiovascular Disease | DX: R00.1 Bradycardia, unspecified (principal); Z95.0 Presence of cardiac pacemaker ==

== ENCOUNTER → 2017-01-10 | Outpatient (CLI) | payer OTHER, MEDICARE ==
[~2017-01-10] MED LIST: IOPAMIDOL (ISOVUE-300) 100 ML BTL ONE
== END ==
LOC: FIMAGING 10:44
PROVIDERS: ATTEND Urology
DX: C61 Malignant neoplasm of prostate (principal); R31.0 Gross hematuria
CPT/HCPCS: 74178; Q9967

== ENCOUNTER → 2017-01-14 | Outpatient (CLI) | payer OTHER, MEDICARE | LOC: FIMAGING 12:17 | DX: Z12.39 Encounter for other screening for malignant neoplasm of breast (principal); N63.10 Unspecified lump in the right breast, unspecified quadrant | CPT/HCPCS: 76641; G0204 ==

== ENCOUNTER → 2018-07-23 | Outpatient (CLI) | payer OTHER, MEDICARE | LOC: BMCIMAGING 11:38 | PROVIDERS: ATTEND Nurse Practitioner Adult Health | DX: M25.522 Pain in left elbow (principal); M79.89 Other specified soft tissue disorders ==